=== PATIENT | male | born 1985 | race Two or more races ===

== ENCOUNTER 2024-04-25 11:52 | Emergency (ER) | payer OTHER, SELFPAY ==
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
[2024-04-25 12:01] VITALS: BP 120/85; PULSE 92; RESP 16; TEMP 36.3; O2SAT 100
[2024-04-25 12:02] VITALS: BMI 22.7
--- NOTE | 2024-04-25 12:16 | XR_ITS ---
Examination: CT brain head without contrast. 2-D sagittal coronal reconstructions Date and time of exam:April 25, 2024 1258 hrs. Indications: Injury to the head today, head pain Comparison: August 04, 2020 CTDI: vol (mGy):49.7 DLP: (mGycm):1014 Technique: Multiple CT axial sections of the brain have been obtained, 5 mm slice thickness. Contrast has not been administered. 2-D sagittal, coronal reconstructions have been obtained Low dose protocols were performed. One or more of the following dose reduction techniques were used; automated exposure control, adjustment of the mA and/or KV according to patient size, use of iterative reconstruction technique. Findings: No significant ventricular enlargement. Intra-axial or extra-axial hemorrhage density is not seen. No mass effect or midline shift Basal cisterns are not remarkable. Fourth ventricle is midline. Cranial vault intact. Posterior scalp swelling on the right Impression: Negative for acute hemorrhage, mass effect or midline shift
[2024-04-25] MEDS: ACETAMINOPHEN 500 MG TABLET 1000 MG PO (13:29)
== END 2024-04-25 13:40 ==
PROVIDERS: Emergency Provider Emergency Medicine
DX: S01.01XA Laceration without foreign body of scalp, initial encounter (principal); Y04.0XXA Assault by unarmed brawl or fight, initial encounter; Y92.149 Unspecified place in prison as the place of occurrence of the external cause; Z28.21 Immunization not carried out because of patient refusal
CPT/HCPCS: 12001; 70450; 99284; A9270

== ENCOUNTER 2025-03-12 04:07 | Emergency (ER) | payer MEDICAID, SELFPAY ==
[2025-03-12 04:09] VITALS: BMI 22.8
[2025-03-12 04:10] VITALS: BP 123/67; PULSE 111; RESP 20; TEMP 37; O2SAT 96
--- NOTE | 2025-03-12 04:43 | PD.EDRME ---
Rapid Medical Screening Exam RME Arrival date/time: 03/12/25 04:07 39M with history of psych/drugs presents to ED with depression. Chief Complaint: Depression Vital signs: Vital Signs Temperature 98.6 F 03/12/25 04:10 Pulse Rate 111 H 03/12/25 04:10 Respiratory Rate 20 03/12/25 04:10 Blood Pressure 123/67 03/12/25 04:10 Pulse Oximetry (%) 96 03/12/25 04:10 Oxygen Delivery Method Room Air 03/12/25 04:10 Exam: Crying Clinical Impression: psych vs homeless vs drugs
[2025-03-12] MEDS: DIAZEPAM 5 MG TABLET PO (05:19)
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
== END 2025-03-12 06:45 | disposition left against medical advice (07) ==
LOC: SERX 06:15
PROVIDERS: Emergency Provider Emergency Medicine
DX: F32.A Depression, unspecified (principal); Z53.29 Procedure and treatment not carried out because of patient's decision for other reasons
CPT/HCPCS: 99281; A9270

== ENCOUNTER 2025-03-13 03:05 | Emergency (ER) | payer MEDICAID, SELFPAY ==
[2025-03-13 03:06] VITALS: BMI 21.9
[2025-03-13 03:21] VITALS: BP 122/81; PULSE 112; RESP 18; TEMP 36.6; O2SAT 96
[2025-03-13 04:54] LABS: Basophils # (Auto) 0.1 Thou/mm3 (0.0-0.2); Basophils % (Auto) 0 % (0-2.5); Eosinophils # (Auto) 0.0 Thou/mm3 (0.0-0.5); Eosinophils % (Auto) 0 % (0-10); Hematocrit 41.2 % (41.0-53.0); Hemoglobin 14.1 g/dL (13.5-16.0); Immature Granulocytes Auto 0.02 Thou/mm3 (0.00-0.00); Lymphocytes # (Auto) 1.7 Thou/mm3 (1.0-4.8); Lymphocytes % (Auto) 14 % (10-50); Mean Corpuscular HGB Conc 34.2 g/dl (31.0-37.0); Mean Corpuscular Hemoglobin 32.0 pg (25.0-35.0); Mean Corpuscular Volume 93 fL (80-100); Monocytes # (Auto) 1.2 Thou/mm3 (0.0-0.8); Monocytes % (Auto) 10 % (0-12); Neutrophils # (Auto) 9.3 Thou/mm3 (1.8-7.7); Neutrophils % (Auto) 76 % (37-80); Nucleated Red Blood Cell # 0.00 Thou/mm3 (0.00-0.00); Nucleated Red Blood Cell % 0 /100 WBC (0); Platelet Count 244 Thou/mm3 (140-440); RDW Standard Deviation 42.9 fL (35.1-43.9); Red Blood Count 4.41 Miln/mm3 (4.50-5.90); White Blood Count 12.3 Thou/mm3 (3.8-10.6)
[2025-03-13 05:14] LABS: Acetaminophen < 2.0 mcg/mL (10.0-20.0); Alcohol, Blood Medical < 3.0 mg/dL (0-10.0); Salicylate < 3.0 mg/dL
[2025-03-13 05:20] LABS: Alcohol, Urine Negative (Negative); Amphetamine/Methamp Scrn,U Positive (Negative); Barbiturate Screen,Urine Negative (Negative); Benzodiazepines Screen,Urine Negative (Negative); Benzoylecgonine Screen, Ur Negative (Negative); Fentanyl Screen,Urine Negative (Negative); Opiate Screen,Urine Negative (Negative); THC Screen,Urine Negative (Negative)
[2025-03-13 05:53] VITALS: BP 126/87; PULSE 111; RESP 17; TEMP 37.1; O2SAT 96
--- NOTE | 2025-03-13 06:39 | PD.EDDEPRS ---
ED Psych RME/HPI General Chief Complaint: Depression Stated Complaint: DEPRESSION, WANTS PERSCRIPTION Time Seen by Provider: 03/13/25 04:25 Arrival date/time: 03/13/25 03:05 Related Data Previous Rx's ?Medication ?Instructions ?Recorded hydroxyzine HCl 25 mg tablet 25 mg PO BID PRN anxiety #30 tabs 01/27/24 Allergies Allergy/AdvReac Type Severity Reaction Status Date / Time No Known Allergies Allergy Verified 03/13/25 03:06 Course Quality Measures none Orders Category Date Time Status Acetaminophen Stat Lab 03/13/25 04:36 Completed Alcohol, Blood Medical Stat Lab 03/13/25 04:36 Completed Alcohol, Urine Stat Lab 03/13/25 04:32 Completed CBC Stat Lab 03/13/25 04:36 Completed Drug Screen,Urine Stat Lab 03/13/25 04:32 Completed Salicylate Stat Lab 03/13/25 04:36 Completed Vital Signs Vital signs: Vital Signs Temperature 98 F 03/13/25 03:21 Pulse Rate 112 H 03/13/25 03:21 Respiratory Rate 18 03/13/25 03:21 Blood Pressure 122/81 03/13/25 03:21 Pulse Oximetry (%) 96 03/13/25 03:21 Oxygen Delivery Method Room Air 03/13/25 03:21 Psych MDM Narrative MDM Narrative:: This section includes all my notes and documentations, including HPI, PE, and ED course. Luis A Bray MD HPI: 39-year-old male here requesting help for depression. He has trouble giving us more details. Including the onset. He reports no thoughts of hurting himself or others. He reports no hallucinations. Admits to using methamphetamine. No other complaints. ROS: All negative except as documented in HPI. Physical Exam: General: Alert and oriented. Eyes: Conjunctivae and lids clear. EOMI. PERRL. ENT: No nasal congestion. Neck: Supple. Heart: RRR. Lungs: No respiratory distress. Good air movement. No rhonchi, wheezing, rales. Abdomen: Soft and nontender. Skin: Warm and dry. Neuro: Alert and oriented X 3. Cranial Nerves II-XII grossly intact. No peripheral motor deficits. Musculoskeletal: All major joints and bones are not tender with no limited ROM. Blood tests and urine tests remarkable for positive UDS for methamphetamine. At this point, diagnoses include: Methamphetamine intoxication. Patient reevaluated prior to discharge. Reports his depression has resolved. Continues to report no thoughts of hurting himself or others and hallucinations. Recommended more outpatient care. Based on my best medical judgment, made decision no further evaluation or treatment indicated at this time. Patient understands and agrees to the discharge instructions customized and printed, see below. Discharge Instructions from Dr. Bray: 1. As you requested, you are being discharged. 2. You don't meet the criteria for emergency care home in psychiatric unit against your will.? Because you have no thoughts of hurting yourself or others.? And there are no signs of psychosis (loss of touch with reality) which can potentially be harmful to you and others. 3. See a private doctor on 03/15/25 for recheck and further care. Ask to help you stay healthy both physically and mentally.? And help to receive all services available to you, including referral to see mental health specialists. And to stay away from drugs, including methamphetamine. 4. Seek immediate medical care (you can call 911 any time) with thoughts of hurting yourself or with any concerns. Lui sA Bray MD Patient data External records reviewed:: [facility] previous records Clinical information provided by:: patient Social determinants that could affect healthcare access:: substance use Patient has the following chronic illnesses:: Methamphetamine abuse How is presenting disease/condition affected by chronic disease/condition?: exacerbated by Evaluation data The following diagnostics were reviewed and interpreted by me:: lab results Lab and/or radiology exams considered but not ordered:: None Interpretation Summary: Blood tests and urine tests remarkable for positive UDS for methamphetamine. Medications / Prescriptions Medications or Prescriptions considered but not ordered:: None Medication administrations:: None Consultations Consultation(s) initiated? (list below): No Diagnosis Psych Differential Diagnosis: acute psychosis, chronic schizophrenia, suicidal ideation, bipolar disorder, depression, drug-induced psychotic disorder and acute anxiety Most likely diagnosis given after review of the tests above:: Methamphetamine intoxication Admission Indicated Admission indicated?: not indicated Explain why admission is indicated or not indicated:: With no condition needing emergent intervention, there was no indication for admission. Admission Request Was there a request for admission?: No Disposition Plan Disposition Plan: Discharge Discharge Attestation Discharge Attestation: The patient and all family members were given an opportunity to ask questions and understood the discharge instructions. Discharge instructions specifically effects, indications for sooner follow up or return to the emergency department, and the expected course of current diagnosis. Patient condition: Stable Discharge Plan Plan Patient Disposition: HOME (Self Care) Prescriptions/Referrals Prescriptions/Med Rec: No Action hydroxyzine HCl 25 mg tablet 25 mg PO BID PRN (Reason: anxiety) Qty: 30 0RF Referrals: No Primary/Family,Physician [Primary Care Provider] - In 1 week Problem List Clinical Impression: Methamphetamine intoxication Patient/Caregiver Discharge Instructions Discharge Activity: activity as tolerated Education Materials: Understanding Methamphetamine ..., ED Drug Abuse Additional Instructions: Discharge Instructions from Dr. Bray: 1. As you requested, you are being discharged. 2. You don't meet the criteria for emergency care home in psychiatric unit against your will.? Because you have no thoughts of hurting yourself or others.? And there are no signs of psychosis (loss of touch with reality) which can potentially be harmful to you and others. 3. See a private doctor on 03/15/25 for recheck and further care. Ask to help you stay healthy both physically and mentally.? And help to receive all services available to you, including referral to see mental health specialists. And to stay away from drugs, including methamphetamine. 4. Seek immediate medical care (you can call 911 any time) with thoughts of hurting yourself or with any concerns. Print Language: Faroese Stand Alone Forms: Aliyah Award Info., Patient Portal Info Letter
== END 2025-03-13 06:57 | disposition home or self-care (01) ==
PROVIDERS: Emergency Medicine; Emergency Provider Emergency Medicine
DX: F15.129 Other stimulant abuse with intoxication, unspecified (principal)
CPT/HCPCS: 36415; 80307; 80320; 80329; 85025; 99282; G0480

== ENCOUNTER 2025-03-13 22:34 | Emergency (ER) | payer MEDICAID, SELFPAY ==
[2025-03-13 22:47] VITALS: BP 147/89; PULSE 96; RESP 18; TEMP 36.7; O2SAT 98
--- NOTE | 2025-03-13 23:01 | EDNOTE_ITS ---
ED General RME/HPI General Chief complaint: General Adult/Misc Complain Stated complaint: I'M COLD Time Seen by Provider: 03/13/25 22:37 Arrival date/time: 03/13/25 22:34 This is a case of 39-year-old male who came in in the emergency room due to cold feeling patient states that he is homeless and he is out for 2 days patient denies any chest pain shortness of breath headache nausea vomiting dizziness any urinary symptoms abdominal pain patient denies any anxiety or depression or any suicidal or homicidal ideation no hallucination Limitations: no limitations Related Data Previous Rx's ?Medication ?Instructions ?Recorded hydroxyzine HCl 25 mg tablet 25 mg PO BID PRN anxiety #30 tabs 01/27/24 Allergies Allergy/AdvReac Type Severity Reaction Status Date / Time No Known Allergies Allergy Verified 03/13/25 22:35 Review of Systems Review of Systems Systems Reviewed: All systems reviewed, normal except as documented Constitutional Constitutional: Reports system reviewed and no additional complaints, except as documented and Reports as per HPI Cardiovascular Cardiovascular: Reports system reviewed and no additional complaints, except as documented and Reports as per HPI Respiratory Respiratory: Reports system reviewed and no additional complaints, except as documented and Reports as per HPI Gastrointestinal Gastrointestinal: Reports system reviewed and no additional complaints, except as documented and Reports as per HPI Musculoskeletal Musculoskeletal: Reports system reviewed and no additional complaints, except as documented and Reports as per HPI Neurologic Neurologic: Reports system reviewed and no additional complaints, except as documented and Reports as per HPI Past Medical History Past Medical History NEUROLOGIC: Negative Neurological Disorders CARDIAC: Negative Cardiac Disorders or Congestive Heart Failure RESPIRATORY: Negative Chronic Obstructive Pulmonary Disease (COPD) GASTROINTESTINAL: Negative Gastrointestinal Disorders GENITOURINARY: Negative Genitourinary Disorders or Renal Disease MUSCULOSKELETAL: Negative Musculoskeletal Disorders ENDOCRINE: Negative Endocrine Disorders, Diabetes Mellitus Type 1 or Diabetes Mellitus Type 2 HEMATOLOGIC: Negative Blood Disorders PSYCHO/SOCIAL: Positive Psychiatric Problems, Recreational Drug Use, Depression and Anxiety OTHER HISTORY: Negative MRSA or Clostridium Difficile Surgical History SURGICAL: Negative Joint Replacement or Mastectomy Social History SMOKING STATUS: Unknown if ever smoked SECOND HAND EXPOSURE: Yes SUBSTANCE USE: methamphetamine ED Exam General Limitations: Present no limitations General appearance: Present alert, in no apparent distress and other (Patient is awake alert oriented not in distress nontoxic looking well-hydrated well nourihsed) Head Head exam: Present atraumatic, normocephalic and normal inspection Eye Eye exam: Present normal appearance, PERRL and EOMI ENT ENT exam: Present normal exam, normal oropharynx and mucous membranes moist Neck Neck exam: Present normal inspection, full ROM and trachea midline; Absent tenderness, meningismus, lymphadenopathy or thyromegaly Chest Chest inspection: Present normal inspection and symmetric chest wall rise; Absent tenderness Respiratory Respiratory exam: Present normal lung sounds bilaterally; Absent respiratory distress, wheezes, stridor, accessory muscle use or prolonged expiratory phase Cardiovascular Cardiovascular exam: Present regular rate, normal rhythm and normal heart sounds; Absent bradycardia, tachycardia, irregular rhythm, systolic murmur or diastolic murmur Abdominal Exam Abdominal exam: Present soft and normal bowel sounds; Absent distention, tenderness, guarding, rebound, rigidity, diminished bowel sounds, hyperactive bowel sounds, hypoactive bowel sounds or organomegaly Extremities Exam Extremities exam: Present normal inspection and full ROM Back Exam Back exam: Present normal inspection and full ROM Neurological Exam Neurological exam: Present alert, oriented X3, CN II-XII intact, normal gait and reflexes normal; Absent motor sensory deficit Psychiatric Psychiatric exam: Present normal affect, normal mood and other (No hallucination); Absent depressed, agitated, anxious, flat affect, manic, homicidal ideation or suicidal ideation Skin Skin exam: Present warm, dry, intact, normal color and other (Excellent skin turgor) Course Quality Measures none Vital Signs Vital signs: Vital Signs Temperature 98.0 F 03/13/25 22:47 Pulse Rate 96 03/13/25 22:47 Respiratory Rate 18 03/13/25 22:47 Blood Pressure 147/89 H 03/13/25 22:47 Pulse Oximetry (%) 98 03/13/25 22:47 Oxygen Delivery Method Room Air 03/13/25 22:47 Oxygen saturation is 98% normal Discharge Plan Plan Patient Disposition: HOME (Self Care) Patient condition on transfer: Stable Prescriptions/Referrals Prescriptions/Med Rec: No Action hydroxyzine HCl 25 mg tablet 25 mg PO BID PRN (Reason: anxiety) Qty: 30 0RF Problem List Clinical Impression: Cold feeling, Homeless Patient/Caregiver Discharge Instructions Education Materials: ED Symptoms With Uncertain Cause Additional Instructions: Follow-up with your primary care physician in 2 days for reevaluation worsening symptoms or any emergent concern call 911 or go to the nearest emergency room you can come back tomorrow morning to see a long term care social worker for house placement Print Language: Croatian Stand Alone Forms: Aliyah Award Info., Patient Portal Info Letter PA/OPTOMETRIST ASSISTANT Supervising Physician PA/RONEY Supervising Physician: Dr. Fercho Carter MDM Narrative MDM hospital course (for use when minimal MDM required): This is a case of 39-year-old male who came in in the emergency room due to cold feeling patient states that he is homeless and he is out for 2 days patient denies any chest pain shortness of breath headache nausea vomiting dizziness any urinary symptoms abdominal pain patient denies any anxiety or depression or any suicidal or homicidal ideation no hallucination physical examination patient is awake alert oriented not in distress nontoxic looking well-hydrated well- nourished clear breath sounds equal no wheezing no crackles no rales no retraction no stridor HEENT exam is normal and unremarkable normal rate regular rhythm no murmur no pitting edema abdominal exam is benign nonsurgical no guarding no rebound no rigidity neurological exam is normal awake alert oriented x 4 no focal deficit GCS 15/15 steady gait mental exam no anxiety no depression denies suicidal or homicidal ideation no hallucination at the time of exam patient is normal I discussed with the patient regarding his diagnosis gave him plenty of hot blanket to warm and I asked the security if the patient can stay in the lobby patient was advised to return tomorrow morning to see a bridge maintenance worker for house placement at this point patient will be discharged with stable condition she was advised to follow-up with PCP for reevaluation and for any worsening symptoms or any emergent concern return precaution in the ER is advised Patient was discharged with comfortable condition walking with stable gait. Patient verbalized no further complains explained diagnosis and answered patient question. Patient is comfortable with the proposed management plan including the need to follow up with his/her primary care physician and any specialist if applicable Discussed patient for any urgent condition or worsening sx, He/She needed to go to emergency room immediately or call 911. Patient acknowledge the responsibility to follow up as instructed and to monitor her/his symptoms. For any persistence of the symptoms for more than 3-5 days return precaution advised. Medical Records reviewed [facility] Meds/Rx considered, not ordered None Labs/Rad/Tests considered, not ordered None Chronic Illness/Social Conditions which may negatively complicate care or outcome(s)-explain: None or not applicable EKG EKG not done Labs Labs: none Imaging Imaging interpretation: none Medication Administration(s) none Diagnosis Differential Diagnosis ED Complaint MDM: Feeling cold Diagnoses ruled out and/or further discussions: Feeling cold
== END 2025-03-13 23:16 | disposition home or self-care (01) ==
LOC: SERX 23:04
PROVIDERS: Emergency Provider Emergency Medicine
DX: Z76.89 Persons encountering health services in other specified circumstances (principal); Z59.00 Homelessness unspecified
CPT/HCPCS: 99281